=== PATIENT | female | born 1975 | race American Indian/Alaskan Native ===

== ENCOUNTER 2021-07-16 08:03 | Outpatient (CLI) | payer BC ==
--- NOTE | 2021-07-16 15:52 | Treadmill Report ---
DATE OF SERVICE: 07/16/2021 TREADMILL STRESS TEST ORDERING PHYSICIAN: Dr. Vega. INDICATION: Preop for bariatric surgery. Baseline EKG sinus rhythm with nonspecific ST-T as in V1 and V2. Baseline blood pressure was 113/70, baseline heart rate 73. DESCRIPTION OF PROCEDURE: The patient exercised on Rivera protocol for 8 minutes 48 seconds. Max heart rate was 151, which is 87% max predicted heart rate. Max blood pressure 145/80. The patient had no EKG changes or arrhythmias suggestive of ischemia. SUMMARY: 1. Negative treadmill EKG. 2. Good exercise capacity 8 minutes 48 seconds of Rivera protocol. 3. There were no EKG changes or arrhythmias suggestive of ischemia. 4. No exaggerated blood pressure response with exercise. TID: [id number] RECEIPT: [id number] GERMAN/SOHAIL
--- NOTE | 2021-07-21 14:45 | Electrocardiograph Report ---
[facility] Test Date: 2021-07-16 Test Time: 08:37:18 Pat Name: BIENVENIDO COMBS Department: Room: Gender: F Booking Supervisor: DARREL : 1975 Requested By: BLADE GALARZA Order Number: [id number] Reading MD: Yonas Mtz Measurements Intervals [place] Rate: 73 P: 68 OH: 186 QRS: -58 QRSD: 89 T: 45 QT: 377 QTc: 414 Interpretive Statements Sinus rhythm Left anterior fascicular block No previous ECG available for comparison Electronically Signed On 07-21-2021 14:44:52 EDT by Yonas Mtz
== END 2021-07-16 08:04 | disposition home or self-care (01) ==
LOC: CARD 08:03
PROVIDERS: ATTEND Surgery
DX: E66.01 Morbid (severe) obesity due to excess calories (principal)
CPT/HCPCS: 93005; 93017

== ENCOUNTER 2021-07-27 07:16 | Day surgery (SDC) | payer BC ==
[~2021-07-27 07:16] MED LIST: SODIUM CHLORIDE 0.9% 1000 ML 1,000 ML IV SCH
--- NOTE | 2021-07-27 08:25 | Anesthesia Consultation ---
Anesthesia Consult and Med Hx Date of service: 07/27/21 - Airway Anesthetic Teeth Evaluation: Good ROM Head & Neck: Adequate Mental/Hyoid Distance: Adequate Mallampati Class: Class II Intubation Access Assessment: Probably Good - Pulmonary Exam CTA: Yes - Pre-Operative Health Status ASA Pre-Surgery Classification: ASA3 Proposed Anesthetic Plan: MAC - Pulmonary Hx Smoking: No Hx Respiratory Symptoms: No Hx Sleep Apnea: No - Cardiovascular System Hx Hypertension: No Hx Angina: No Hx Heart Murmur: No - Central Nervous System Hx Neuromuscular Disorder: Yes (Multiple Sclerosis) Hx Seizures: No Hx Psychiatric Problems: Yes (Anxiety and Depression) - Gastrointestinal Hx Ulcer: No Hx Gastroesophageal Reflux Disease: Yes - Endocrine Hx Renal Disease: No Hx Liver Disease: No Hx Insulin Dependent Diabetes: No Hx Non-Insulin Dependent Diabetes: No Hx Thyroid Disease: No - Other Systems Hx Alcohol Use: No Hx Substance Use: No Hx Cancer: No Hx Obesity: Yes (BMI- 38.1kg) - Additional Comments Anesthesia Medical History Comments: Patient denied previous complications from anesthesia.
--- NOTE | 2021-07-27 08:31 | Anesthesia Day of Surgery ---
Anesthesia Day of Surgery - Day of Surgery Patient Examined: Yes Patient H&P Reviewed: Yes Patient is NPO: Yes Beta Blockers: No Cardiac Clearance: No Pulmonary Clearance: No Christian's Test: N/A
--- NOTE | 2021-07-27 09:11 | Discharge Summary ---
Providers - Providers Date of Admission: 07/27/2021 Date of discharge: 07/27/21 Attending physician: BLADE GALARZA MD Primary care physician: SACHIN VELA Hospitalization Reason for admission: pre-op egd for bariatric surgery Condition: Good Procedures: egd with bx Hospital course: Pt presented for a pre-op EGD as part of planning for up coming bariatric surgery. Procedure was uneventful and pt recovered well and was discharged to home. Disposition: 01 HOME / SELF CARE / HOMELESS Final Discharge Diagnosis (Prints w/discharge instructions): morbid obesity, gerd Core Measure Documentation - Palliative Care Palliative Care/ Comfort Measures: Not Applicable - Core Measures Any of the following diagnoses?: none Exam - Physical Exam Narrative exam: unchanged from pre-op Plan Activity: advance as tolerated Diet: low carbohydrate Follow up with: SACHIN VELA MD [Primary Care Provider] - 7 Days
--- NOTE | 2021-07-27 09:11 | Operative Report ---
Operative Report Operative Report: DATE: 07/27/2021 SURGERY: Upper endoscopy. SURGEON: Bonita Vega M.D. PROCEDURE: EGD with biopsy PRE OP DX: morbid obesity, GERD POST OP DX: morbid obesity, GERD TYPE OF ANESTHESIA: MAC. ESTIMATED BLOOD LOSS: None. COMPLICATIONS: None. SPECIMENS REMOVED: antral biopsy FINDINGS: 1. Small hiatal hernia. 2. mild gastritis INDICATIONS:INDICATION FOR PROCEDURE: Patient is a 45-year-old female with a long history of morbid obesity. She is planned to have a weight loss procedure and is here for preoperative planning EGD. PROCEDURE DETAILS: After consent was reviewed, patient was taken back to the operating room where patient was placed in the left lateral decubitus position and a bite block was placed in the mouth. After a time-out was called, MAC anesthesia was initiated. I then passed the endoscope into her oropharynx, into her esophagus, visualized the entire esophagus, which was all within normal limits. Z-line was noted to about 36cm from incisors. I then visualized the stomach and the first portion of the duodenum and there were no abnormalities I could clearly visualize except for antral gastritis. A cold forceps biopsy of the antrum was taken and will be sent to pathology to evaluate for H.pylori. I then retroflexed the scope in the stomach and visualized the hiatus and I could see a small hiatal hernia. I then desufflated the stomach and removed the endoscope. Patient tolerated procedure well and was transferred to recovery room in good and stable condition.
[2021-07-27] MEDS ORDERED: propofoL 200 MG/20 ML VIAL IV ONE (09:59)
--- NOTE | 2021-07-27 10:50 | Post Anesthesia Evaluation ---
- Post Anesthesia Evaluation Patient Participated: Yes Airway Patent: Yes Stable Respiratory Function: Yes Nausea/Vomiting: No Temp > 96.8F: Yes Pain Manageable: Yes Adequeate Hydration: Yes Anesthesia Complications: No
[2021-07-27 10:53] VITALS: BP 124/75
== END 2021-07-27 11:41 | disposition home or self-care (01) ==
LOC: GIO 07:16
PROVIDERS: ATTEND Surgery
DX: E66.01 Morbid (severe) obesity due to excess calories (principal); K21.9 Gastro-esophageal reflux disease without esophagitis; K44.9 Diaphragmatic hernia without obstruction or gangrene; K29.50 Unspecified chronic gastritis without bleeding; K31.89 Other diseases of stomach and duodenum; F41.9 Anxiety disorder, unspecified; F32.9 Major depressive disorder, single episode, unspecified; Z79.899 Other long term (current) drug therapy; Z68.38 Body mass index [BMI] 38.0-38.9, adult
CPT/HCPCS: 43239; 74220; 88305; 88342; J2704; J7030

== ENCOUNTER 2021-07-27 12:39 | Outpatient (CLI) | payer BC ==
[~2021-07-27 12:39] MED LIST changes: -SODIUM CHLORIDE 0.9% 1000 ML 1,000 ML IV SCH; +SODIUM CHLORIDE 0.9% 1000 ML 1,000 ML ONE
--- NOTE | 2021-07-27 15:38 | Fluoroscopy Report ---
Esophagram Indication: functional dyspepsia. Technique: Single and double contrast barium technique utilized to evaluate the esophagus. Findings: Initial wrister radiograph was performed. Small sample of thin barium was swallowed and no ev idence of aspiration was identified. Rapid sequence fluoroscopic evaluation the cervical esophagus wa s performed in the lateral and frontal projections. Patient was placed in the LPO position and double contrast fluoroscopic evaluation of the esophagus was performed. Swallowing was normal. No mucosal irregularity, mass, mass effect, or critical stenosis. There were no abnormal tertiary c ontractions as seen with dysmotility. No gastroesophageal reflux. No hiatal hernia. Impression: Unremarkable fluoroscopic esophagram. Specifically, no evidence of gastroesophageal reflux or hiatal hernia. Fluoroscopic time: 1.6 minutes Number of fluoroscopic images: 31 Signer Name: Shree Batres MD Signed: 07/27/2021 3:34 PM Workstation Name: [id number]
== END 2021-07-27 12:40 | disposition home or self-care (01) ==
LOC: FLUORO 12:39
PROVIDERS: ATTEND Surgery
DX: K30 Functional dyspepsia (principal)
CPT/HCPCS: 74220; J7030